=== PATIENT | female | born 1970 | race American Indian/Alaskan Native ===

== ENCOUNTER 2021-11-30 16:21 | Emergency (ER) | payer MEDICARE ==
--- NOTE | 2021-11-30 16:46 | Emergency Department Report ---
ED CPR HPI - General Stated Complaint: CARDIAC ARREST Time Seen by Provider: 11/30/21 16:27 Source: EMS - History of Present Illness Initial Comments: 51 yo F brought in by EMS with CPR in progress. EMS got a call with witness col ponce and was able to get there in about 5 minutes. Pt has been given 7 round of epi total and has been having effective CPR for 35 minutes. EMS reports that they got ROSC after the second epi which lasted for about less than 1 minute. According to EMS there patient monitor has been showing PEA with intermittent asystole throughout the code. Pt has IO access and kings airway in place. CPR continued for 2 more minutes in the ED and patient rhythm was checked to be in asystole. Pupil checked to be fully dilated and fixed with no reaction. At this time I do not believed continue the resuscitation effort will bring any medical viable outcome. Resuscitation effort called to be terminated and patient pronounced at 16:21 PM on 11/30/2021. No family was around at this point. History is very limited to the history from the EMS. No other modifying or associated factors reported. - Related Data Previous Rx's Medication Instructions Recorded Last Taken Type Famotidine [Pepcid] 40 mg PO QHS #10 tablet 11/21/13 Unknown Rx Ondansetron [Zofran Odt] 4 mg PO Q6H PRN #15 tab.rapdis 11/21/13 Unknown Rx Allergies Allergy/AdvReac Type Severity Reaction Status Date / Time No Known Allergies Allergy Verified 11/20/13 23:29 ED Review of Systems ROS: Stated complaint: CARDIAC ARREST Other details as noted in HPI Comment: Unobtainable due to pts medical conditions Cardiovascular: other (cardiopulmonary arrest ) ED Past Medical Hx - Past Medical History Hx Diabetes: Yes Hx Deep Vein Thrombosis: Yes Additional medical history: pituitary tumor - Surgical History Additional Surgical History: pituitary removed 1986 - Social History Smoking Status: Never Smoker Substance Use Type: None - Medications Home Medications: Home Medications Medication Instructions Recorded Confirmed Last Taken Type Famotidine [Pepcid] 40 mg PO QHS #10 tablet 11/21/13 Unknown Rx Ondansetron [Zofran Odt] 4 mg PO Q6H PRN #15 tab.rapdis 11/21/13 Unknown Rx ED Physical Exam - General Limitations: Other (cardiopulmonary arrest see HPI for detail) - Eye Pupils: Present: other (Pupil fully dilated and fixed with no reaction) ED Course - Reevaluation(s) Reevaluation #1: 11/30/21 16:53 see HPI for details ED Medical Decision Making - Medical Decision Making see HPI for details - Differential Diagnosis Cardiac arrest, pulmonary arrest, CVA, [place] Critical Care Time: Yes (10) Critical care time in (mins) excluding proc time.: 10 Critical care attestation.: If time is entered above; I have spent that time in minutes in the direct care of this critically ill patient, excluding procedure time. Critical Care Time: 10 ED Disposition Clinical Impression: Cardiopulmonary arrest Disposition: 20 Is pt being admited?: No Does the pt Need Aspirin: No Condition: Poor Instructions: CPR, Adult
== END 2021-11-30 19:52 ==
LOC: ED 16:21
DX: I46.9 Cardiac arrest, cause unspecified (principal); E11.9 Type 2 diabetes mellitus without complications
CPT/HCPCS: 92950; 99285